=== PATIENT | female | born 1945 | race Caucasian/White ===

== ENCOUNTER 2016-10-03 13:01 | Emergency (ER) | payer MEDICARE, OTHER ==
[~2016-10-03] VITALS: Ht 162.6 cm; Wt 65.8 kg
[~2016-10-03 13:01] MED LIST: ESTROTEST; SIMVISTATIN
[2016-10-03 13:51] VITALS: BP 165/81
[2016-10-03 14:37] LABS: Basophils # (auto) 0 uL; Basophils % (auto) 0.4 % (0.0-2.0); Eosinophils # (auto) 0.1 uL; Eosinophils % (auto) 2.1 % (0.0-7.0); Hematocrit 42.8 % (36.0-46.0); Hemoglobin 14.5 g/dL (12.2-16.2); Lymphocytes # (auto) 1.7 uL; Lymphocytes % (auto) 28.5 % (10.0-50.0); Mean Corpuscular Hemoglobin 30.7 pg (28.0-32.0); Mean Corpuscular Hgb Conc. 33.9 g/dL (32.0-36.0); Mean Corpuscular Volume 90.6 fL (80.0-100.0); Mean Platelet Volume 7.6 fL (7.4-10.4); Monocytes # (auto) 0.6 uL; Monocytes % (auto) 10.1 % (0.0-12.0); Neutrophils # (auto) 3.6 uL; Neutrophils % (auto) 58.9 % (37.0-80.0); Platelet Count (auto) 241 10^3/uL (140-450); Red Cell Distribution Width 14.1 % (11.6-16.0); White Blood Cell 6.1 10^3/uL (4.4-10.8)
[2016-10-03 14:46] LABS: INR 1.04 (0.9-1.15); Partial Thromboplastin Time 25.5 sec (22.64-33.71); Prothrombin Time 10.7 sec (9.37-12.3)
[2016-10-03 15:06] LABS: Albumin 3.7 g/dL (3.4-5.0); Alkaline Phosphatase 60 U/L (45-117); Anion Gap 10 (5-15); Aspartate Aminotransferase 13 U/L (15-37); BUN/Creatinine Ratio 15.5; Bilirubin, Total 0.7 mg/dL (0.2-1.0); Blood Urea Nitrogen 13 mg/dL (7-18); Calcium 9.1 mg/dL (8.5-10.1); Carbon Dioxide 26 mmol/L (21-32); Chloride 107 mmol/L (98-107); GFR African American 86 mL/min; GFR Non-African American 71 mL/min; Glucose 91 mg/dL (74-106); Potassium 4.1 mmol/L (3.5-5.1); Sodium 143 mmol/L (136-145); Total Protein 6.8 g/dL (6.4-8.2)
== END 2016-10-03 18:52 | disposition left against medical advice (07) ==
LOC: ER 13:01
DX: R07.9 Chest pain, unspecified (principal); K08.89 Other specified disorders of teeth and supporting structures; Z53.21 Procedure and treatment not carried out due to patient leaving prior to being seen by health care provider
CPT/HCPCS: 36415; 71020; 80053; 84484; 85025; 85610; 85730; 93005

== ENCOUNTER 2017-07-21 23:48 | Emergency (ER) | payer MEDICARE, OTHER ==
[~2017-07-21] VITALS: Ht 162.6 cm; Wt 68.0 kg
[2017-07-21 23:54] VITALS: BP 164/95
[2017-07-22 00:47] LABS: Urine Bilirubin Negative (Negative); Urine Blood Negative /uL (Negative); Urine Color Yellow (Yellow); Urine Glucose Normal (Normal); Urine Ketone 1+ (Negative); Urine Nitrite Negative (Negative); Urine RBC <1 /hpf (0 - 4); Urine Squamous Epithelial Cell FEW /hpf (<5); Urine Urobilinogen Normal (Negative); Urine pH 6.5 (5.0-8.0)
== END 2017-07-22 06:10 | disposition left against medical advice (07) ==
LOC: ER 23:48
DX: R07.9 Chest pain, unspecified (principal); Z53.21 Procedure and treatment not carried out due to patient leaving prior to being seen by health care provider
CPT/HCPCS: 71010; 81001; 93005

== ENCOUNTER 2021-04-19 18:47 | Emergency (ER) | payer MEDICARE, OTHER ==
[~2021-04-19] VITALS: Ht 162.6 cm; Wt 61.2 kg
[2021-04-19 22:29] VITALS: BP 179/88
== END 2021-04-19 23:06 | disposition home or self-care (01) ==
LOC: ER 18:48
DX: M79.605 Pain in left leg (principal); M79.89 Other specified soft tissue disorders; Z90.710 Acquired absence of both cervix and uterus
CPT/HCPCS: 93971

== ENCOUNTER 2025-06-11 06:10 | Day surgery (SDC) | payer MEDICARE, OTHER ==
[2025-06-04 14:39] LABS: Hematocrit 37.0 % (36.0-46.0); Hemoglobin 12.3 g/dL (12.2-16.2); Mean Corpuscular Hemoglobin 30.7 pg (28.0-32.0); Mean Corpuscular Volume 91.9 fL (80.0-100.0); Nucleated Red Blood Cells % 0.1 %
[2025-06-04 14:47] LABS: Urine Protein, UAD Negative (Negative)
[2025-06-04 14:55] LABS: Alanine Aminotransferase 15 U/L (7-40); Albumin 4.1 g/dL (3.2-4.8); Alkaline Phosphatase 68 U/L (46-116); Anion Gap 10 (5-15); BUN/Creatinine Ratio 15.3 (10.0-20.0); Bilirubin, Total 0.3 mg/dL (0.2-1.0); Blood Urea Nitrogen 21 mg/dL (9-23); Calcium 8.8 mg/dL (8.7-10.4); Carbon Dioxide 28 mmol/L (20-31); Glucose 94 mg/dL (74-106); Potassium 3.6 mmol/L (3.5-5.1); Total Protein 6.6 g/dL (5.7-8.2)
[2025-06-04 15:01] LABS: INR 0.98 (0.9-1.15); Partial Thromboplastin Time 24.8 SEC (24.5-34.5); Prothrombin Time 10.4 sec (9.3-11.8)
[2025-06-04 15:04] LABS: Chloride 108 mmol/L (98-107); Sodium 146 mmol/L (136-145)
[~2025-06-11] VITALS: Ht 162.6 cm; Wt 58.5 kg
[~2025-06-11 06:10] MED LIST changes: +COEN400C8 OR; -ESTROTEST; +HYDR25TA87 PO; +LOSA-534 PO; -SIMVISTATIN; +[UNRECOGNIZED DRUG - CODE] TD
[2025-06-11] MEDS ORDERED: ceFAZolin 2 GM/D5W50ml 50 ML IV ONE (06:35)
[2025-06-11] MEDS: ROPIVACAINE 0.5% (5MG/ML) 20ML AMPULE IJ ONE (07:18)
[2025-06-11] MEDS: BACITRACIN TOP OINT 1 UD PKG TOP ONE (07:18)
[2025-06-11] MEDS ORDERED: MIDAZOLAM HCL 2MG/2ML 2ml VIAL (1mg/ml) ONE (07:19)
[2025-06-11] MEDS ORDERED: fentaNYL CITRATE 100 MCG/2 ML VL ONE (07:19)
[2025-06-11] MEDS ORDERED: PROPOFOL 10 MG/ML 20 ML IV ONE (07:28)
[2025-06-11 08:05] VITALS: PULSE 69; RESP 16; TEMP 97.1; O2SAT 97
--- NOTE | 2025-06-11 08:07 | DVHOP2 ---
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 Charlotte MD Anesthesia: Mac Consent: The patient was informed of the risks and benefits of the procedure. These include but are not limited to complications of anesthesia, postoperative infection, incomplete relief of symptoms, recurrence of symptoms, damage to blood vessels, nerves and tendons, deep venous thrombosis, pulmonary embolism and possible need for repeat surgery in the future. Estimated Blood Loss: Less than 1 cc Indications for Surgery: Chronic pain with significant pain on shoe gear and ambulation Name of Procedure Performed Arthroplasty with K-wire fixation and MPJ release 2nd left toe Procedure Details Procedure Details: The patient was brought to the operating room placed on the operating table in the supine position. After MAC anesthesia was achieved approximately 10 cc of 0.5% ropivacaine plain was injected in V block fashion to the 2nd left toe without incident. The left foot and leg was then prepped and draped in the proper aseptic manner which time a thigh tourniquet was applied and inflated to 250 mm Hg pressure after appropriate elevation and exsanguination utilizing an Esmarch. Attention was now directed to procedure 1. Procedure 1. Arthroplasty with K-wire fixation and MPJ release 2nd left toe: An incision was placed overlying the 2nd left toe extending proximally to the level of the metatarsophalangeal joint. Incision was carried deep by means of sharp and blunt dissection with care being taken to preserve all underlying vital structures all bleeders were bovied or ligated as necessary. The extensor tendon was identified and transected transversely reflecting the head of the proximal phalanx of the 2nd left toe. Utilizing a number 64 blade the medial and lateral collateral ligaments were resected and the head of the proximal phalanx was resected with a power saw and sent to pathology as a specimen. Area was rasped smooth no rough edges had remained. Area was flushed with copious amounts of irrigant was aspirated no debris was noted. At this time due to the significant contracture at the metatarsophalangeal joint deep dissection was carried down to the head of the 2nd left metatarsal whereby utilizing a curette McGlamry scoop the MPJ release was performed without incident. At this time utilizing Xeroform Xeroform five K-wire which was introduced through the intermediate phalanx out the distal phalanx with the toe held in a rectus position. The K-wire was retrograded into the residual portion of the proximal phalanx and into the head and shaft of the 2nd left metatarsal without incident. The toe was inspected and was noted in the very nice rectus anatomic position. The K-wire was bent and cut and capped without incident. The extensor tendon was reanastomosed utilizing 4-0 Vicryl suture. Subcuticular stitch with 4-0 Vicryl suture and skin with Dermabond and Steri-Strips. Surgical dressing consisted of Xeroform 4x4s digital splints Kerlix and 4 in Morgan bandage to yield a mildly compressive type bandage. Thigh tourniquet was released and immediate normal reactive hyperemia returned to all digits with good digital perfusion present. There were no intraoperative complications, the patient left the operating recovery room in stable condition. It is important to note that the patient was prophylaxed with 2 g of IV Ancef prior to surgery. Patient given strict instructions to remain in the surgical shoe and 100% of the time when ambulating. Advised the patient to keep the dressings intact dry and clean. Patient has postop medications at home to manage her postoperative pain as needed. Patient also has her postoperative follow visit my office as well. Specimen: Bone Condition Stable Disposition Home BERT NG DPM Jun 11, 2025 08:07
[2025-06-11 08:15] VITALS: PULSE 66; RESP 15; O2SAT 98
[2025-06-11 08:50] VITALS: BP 128/79; PULSE 62; RESP 13; O2SAT 96
== END 2025-06-11 09:14 | disposition home or self-care (01) ==
LOC: SUR 06:10
PROVIDERS: ATTEND Podiatrist Foot & Ankle Surgery
DX: M20.42 Other hammer toe(s) (acquired), left foot (principal); M20.5X2 Other deformities of toe(s) (acquired), left foot; G89.29 Other chronic pain; I11.0 Hypertensive heart disease with heart failure; I50.9 Heart failure, unspecified; I25.2 Old myocardial infarction; I25.10 Atherosclerotic heart disease of native coronary artery without angina pectoris; Z79.899 Other long term (current) drug therapy; Z90.710 Acquired absence of both cervix and uterus; Z95.810 Presence of automatic (implantable) cardiac defibrillator; Z98.890 Other specified postprocedural states
CPT/HCPCS: 28270; 28285; 36415; 80053; 81001; 85025; 85610; 85730; 88304; 88311; A4649; J0690; J1100; J2250; J2704; J2795; J3010; L3260